=== PATIENT | female | born 1990 | race Two or more races ===

== ENCOUNTER → 2021-05-03 14:35 | Outpatient (BNVA) | payer OTHER, SELFPAY | PROVIDERS: Visit Provider Obstetrics & Gynecology ==

== ENCOUNTER 2021-05-15 12:02 | Outpatient (REF) | payer OTHER, SELFPAY ==
[2021-05-16 11:12] LABS: CT PCR NOT DETECTED (Not Detect.); NG PCR NOT DETECTED (Not Detect.)
[2021-05-19 01:36] LABS: HPV mRNA E6/E7 rflx Not Detected (Not Detected)
== END 2021-05-15 12:03 | disposition home or self-care (01) ==
LOC: HO.LAB 12:02
PROVIDERS: Visit Provider Obstetrics & Gynecology
DX: Z01.419 Encounter for gynecological examination (general) (routine) without abnormal findings (principal); Z11.3 Encounter for screening for infections with a predominantly sexual mode of transmission; Z11.51 Encounter for screening for human papillomavirus (HPV); Z20.2 Contact with and (suspected) exposure to infections with a predominantly sexual mode of transmission
CPT/HCPCS: 87491; 87591; 87624; 88142; 99212

== ENCOUNTER 2021-06-08 07:11 | Day surgery (SDC) | payer OTHER, SELFPAY ==
[2021-05-31 16:09] VITALS: BMI 29.2
[2021-06-08] VITALS (9 sets, daily range): BP systolic 108–124; BP diastolic 53–73; PULSE 73–91; RESP 16–17; TEMP 36.7–37.2; O2SAT 98–100
[2021-06-08 07:26] LABS: UPreg QC Valid YES
[2021-06-08 07:29] LABS: Urine Pregnancy NEGATIVE (NEGATIVE)
--- NOTE | 2021-06-08 07:39 | MHC.SHP ---
Pre-Procedural Eval Section A Date of Service: 06/08/21 The patient is an INPATIENT: No Changes since office visit: No Cold of Flu in the past 2 weeks, No New Medical Problems, No Changes in Medication and No Patient answered all questions The History & Physical has been completed within 30 days and I have reviewed it.: Yes Section B Chief Complaint: Requesting Permanent Sterilization Allergies: Allergies Allergy/AdvReac Type Severity Reaction Status Date / Time No Known Allergies Allergy Verified 05/31/21 16:06 Plan Diagnosis/Plan: Unchanged I have reviewed the history and physical and performed a pertinent physical examination on my patient. No changes have occurred unless specified.
[2021-06-08] MEDS: Lactated Ringers 1,000 ML 100 ML IVCONT (07:46)
--- NOTE | 2021-06-08 07:55 | P.CONAN_ITS ---
PMFSH Active Problems Active Problems: All Active Problems (Updated 05/31/21 @ 16:09 by Emma reyes, TAM) Family planning (Acute) Well woman exam (Acute) Sterilization (Acute) Past Medical History Medical History (Updated 05/31/21 @ 16:09 by Emma Kasper RN) COVID-19 vaccine series completed Surgical History Surgical History (Updated 05/31/21 @ 16:12 by Emma Kasper RN) [place] teeth extracted Social History Social History Household Members: Children Housing: House Alcohol intake: never Patient Tobacco Use Status: Never used Tobacco Use of substances other than those prescribed or required for medical reasons: No Are you DNR?: No Advance Directives: No Advance Directives Information Provided: Yes Advance Directives on File: No Patient : No FDLMP: unknown : No (3 months post-) Poor oral hygiene: No Meds Allergies Allergy/AdvReac Type Severity Reaction Status Date / Time No Known Allergies Allergy Verified 05/31/21 16:06 Home Medications Medication Instructions Recorded Confirmed Last Taken Type prenat.vits,joselito,nte-wtsl-byoav 1 tab PO DAILY 05/03/21 05/31/21 Unknown History Depo-Provera [id number] 05/31/21 Unknown History Exam Exam Date and Time: June 08, 2021 0755 Height,Weight and Vital Signs: Height 5 ft 9 in Weight 89.811 kg Last Vital Signs Temp 98.1 F 06/08/21 07:26 Pulse 77 06/08/21 07:26 Resp 16 06/08/21 07:26 BP 124/73 06/08/21 07:26 Pulse Ox 100 06/08/21 07:26 Pertinent Lab Results Pertinent Lab Results: Laboratory Tests 06/08/21 07:15 Urine Test NEGATIVE Airway Mallampati Class: I TM Dist: >3cm Neck ROM: Full
--- NOTE | 2021-06-08 09:14 | PM.OP ---
Brief Operative Note Date of Service: 06/08/21 Pre-op diagnosis: Complete family requesting permanent sterilization Post-op diagnosis: same Procedure: Laparoscopic bliateral salpingectomy Surgeon: Wili Greco MD Anesthesia: GETA Was an Community Outreach Advocate used for this Procedure?: No Estimated blood loss (mL): 0 Pathology: other (Right & left fallopian tubes) Condition: stable Disposition: PACU
--- NOTE | 2021-06-08 09:15 | P.OP_ITS ---
Operative Note Operative Note Date of Service: 06/08/21 Narrative: PREOPERATIVE DIAGNOSIS:?Completed family requesting?permanent sterilization POSTOPERATIVE DIAGNOSIS:?Completed family requesting?permanent sterilization QBL: Minimal Anesthesia: GETA SURGEON:? Wili Greco MD?? Creative Producer: Complications: None Pathology: Right and left Fallopian tubes? DESCRIPTION OF PROCEDURE:?The patient was taken to the OR where general anesthesia was easily obtained. The patient was then prepped and draped in a sterile fashion and placed in dorsal lithotomy position. A speculum was introduced into the patient?s vagina for cervical visualization. Once the cervix was visualized, a single-toothed tenaculum was applied to the upper lip of the cervix, and a Humi manipulator was introduced into the patient?s cervix. The single tooth tenaculum was then removed and hemostasis was assured?using pressure. a Weaver catheter?was inserted and clear urine started draining. Gloves were changed to clean ones. Attention was then drawn to the abdomen where a 10 mm longitudinal incision was done intra umbilical and carried down all the way to the fascia, which was tented?up using 2 Jason clamps and was nicked in the midline and then extended on both end of the incision?, them using 2 pick?ups the peritoneum?was entered with Metzenbaum scissors and under direct visualization, a 10 mm Chapin trocar was introduced into the patient?s abdomen. Once intraperitoneal placement was confirmed with direct visualization, pneumoperitoneum was started & was easily obtained.Then, two fingerbreadths above the pubic symphysis and towards the?right lower quadrant, under direct visualization, a 5 mm trocar was then introduced into the patient?s abdomen. and a 3rd one on the left?lower quadrant was placed?in a similar manner. The patient was placed in Trendelenburg position, Inspection revealed normal pelvic stru ctures & bilateral ovaries and fallopian tubes. Attention was then drawn to the left fallopian tube. The IP ligament was identified and fallopian tube was then grasped by the fimbria and incised from the mesosalpinx using ligasure device, using cautery for hemostasis and cutting afterwards a bite at a time all the way to the cornual end of the left tube. The same was done?on the?right fallopian tu be. Good hemostasis was noted from both fallopian tube sites and the operative site. Specimen were then removed from the patient?s abdomen. Copious irrigation was done. Once good hemostasis was noted from the patient?s abdomen, pneumoperitoneum was deflated and all trocars were removed. Infraumbilical fascia was closed with 0 Vicryl and interrupted suture. The skin was closed with 4-0 Vicryl. The Right and left?lower quadrant ports were closed with 0 Vicryl. Bupivicaine 0.25 10 cc were injected subcuticularly in the 3 incisions. Then speculum was put back in the vagina inspection revealed?hemostasis at the site of the tenaculum, the?humi manipulator was removed? and Weaver was draining clear urine was taken out too. Sponge, lap and needle counts were correct x2. The patient was taken to the recovery room in stable condition.
[2021-06-08] MEDS: oxyCODONE HCl Immed Release 5 MG TABLET PO (09:33)
[2021-06-08] MEDS: fentaNYL citrate/PF 100 MCG/2 ML VIAL 50 MCG IVPUSH (09:37)
== END 2021-06-08 11:16 | disposition home or self-care (01) ==
PROVIDERS: Visit Provider Obstetrics & Gynecology
PROC: (CPT 58670; principal; 2021-06-08 08:30)
DX: Z30.2 Encounter for sterilization (principal)
CPT/HCPCS: 58661; 81025; 88302; J1100; J2250; J2405; J3010

== ENCOUNTER → 2021-06-20 11:56 | Outpatient (BNVA) | payer OTHER, SELFPAY | PROVIDERS: Visit Provider Obstetrics & Gynecology ==